=== PATIENT | male | born 1945 | race Caucasian/White ===

== ENCOUNTER 2016-09-26 09:35 | Emergency (ER) | payer OTHER, MEDICARE ==
[~2016-09-26 09:35] MED LIST: ALBUTEROL; ANAPROX DS550 MG PO; AUGMENTIN 875 M1 TAB PO; CLEOCIN HCL150 MG PO; ENALAPRIL20 MG PO; GLUCOPHAGE1000 MG PO; HYDROCODONE BIT1 T11 PO; INDOMETHACIN25 M1 PO; INDOMETHACIN50 MG PO; INVEGA3 MG PO; LIPITOR; LIPITOR20 MG PO; METFORMIN PO; MIRTAZAPINE15 M2 PO; MULTIVITAMIN PO; Mysoline50 MG PO; NATURE'S BLEND F1 MG PO; PREDNISONE10 MG PO; TRAMADOL HCL50 MG PO; VICODIN 5/500 505 MG PO; VITAMIN D50000 I3 PO; ZYRTEC
[2016-09-26] MEDS ORDERED: Peridex 473 ML473 ML PO (09:53)
[2016-09-26] MEDS ORDERED: LIDOCAINE HCL100 M1 MM (09:53)
[2016-09-26] MEDS ORDERED: CLINDAMYCIN150 MG PO (09:53)
== END 2016-09-26 10:17 | disposition home or self-care (01) ==
LOC: ED 09:35
DX: K04.7 Periapical abscess without sinus (principal); E11.9 Type 2 diabetes mellitus without complications; M10.9 Gout, unspecified; E78.5 Hyperlipidemia, unspecified; I10 Essential (primary) hypertension; G20 Parkinson's disease; Z90.89 Acquired absence of other organs; Z79.899 Other long term (current) drug therapy

== ENCOUNTER 2020-06-03 21:37 | Inpatient (IN) | payer MEDICARE ==
[~2020-06-03] VITALS: Ht 172.7 cm; Wt 79.5 kg
[~2020-06-03 21:37] MED LIST changes: +CLINDAMYCIN150 MG PO; +LIDOCAINE HCL100 M1 MM; +Peridex 473 ML473 ML PO
[2020-06-03 23:07] VITALS: BP 146/81
[2020-06-03 23:41] LABS: BASO % 0.2 % (0.0-1.0); EOS % 0.2 % (1.0-4.0); HEMATOCRIT 43.9 % (42.0-52.0); LYMPH # 1.2 10*3/uL (1.3-4.4); LYMPH % 8.4 % (27.0-41.0); MEAN CELL VOLUME 97.3 fl (80.0-94.0); MEAN CORPUSCULAR HGB 31.3 pg (27.0-31.0); MEAN CORPUSCULAR HGB CONC 32.1 g/dl (33.0-37.0); MEAN PLATELET VOLUME 10.2 fl (9.6-12.3); MONO # 0.6 10*3/uL (0.1-1.0); MONO % 4.1 % (3.0-9.0); NEUT # 12.8 10*3/uL (2.3-7.9); NEUT % 86.6 % (47.0-73.0); PLATELET COUNT AUTOMATED 304 10*3/uL (130-400); RED BLOOD COUNT 4.51 10*6/uL (4.50-5.90); RED CELL DISTRI WIDTH 11.9 % (0-14.5); WHITE BLOOD COUNT 14.8 10*3/uL (4.8-10.8)
[2020-06-03 23:56] LABS: ALBUMIN 3.9 gm/dl (3.1-4.5); CREATININE 2.77 mg/dL (0.70-1.30); POTASSIUM 5.7 mmol/L (3.5-5.1)
[2020-06-04 02:11] LABS: ACT PARTIAL THROMBO TIME 23.1 SECONDS (20.0-32.1); INTERNATIONAL NORM RATIO 1.1 (2.0-3.5)
[2020-06-04 02:15] LABS: CREATININE 2.62 mg/dL (0.70-1.30)
[2020-06-04 02:27] LABS: BASO % 0.2 % (0.0-1.0); EOS % 0.1 % (1.0-4.0); HEMATOCRIT 41.7 % (42.0-52.0); LYMPH # 0.9 10*3/uL (1.3-4.4); LYMPH % 6.1 % (27.0-41.0); MEAN CELL VOLUME 97.2 fl (80.0-94.0); MEAN CORPUSCULAR HGB 31.7 pg (27.0-31.0); MEAN CORPUSCULAR HGB CONC 32.6 g/dl (33.0-37.0); MEAN PLATELET VOLUME 10.3 fl (9.6-12.3); MONO # 0.5 10*3/uL (0.1-1.0); MONO % 3.3 % (3.0-9.0); NEUT # 12.6 10*3/uL (2.3-7.9); NEUT % 89.7 % (47.0-73.0); PLATELET COUNT AUTOMATED 261 10*3/uL (130-400); RED BLOOD COUNT 4.29 10*6/uL (4.50-5.90)
[2020-06-04 02:41] LABS: POTASSIUM 6.6 mmol/L (3.5-5.1)
[2020-06-04 03:26] LABS: ABG BASE EXCESS -14.6 mmol/L (-2.0-2.0); ARTERIAL BLOOD GAS PH 7.281 (7.35-7.45)
[2020-06-04 03:29] LABS: BILIRUBIN Negative (Negative); CLARITY Clear (Clear); COLOR Yellow (Yellow); GLUCOSE 3+ (Negative); KETONE 4+ (Negative); SPECIFIC GRAVITY 1.015 (1.001-1.030)
[2020-06-04 03:30] LABS: BLOOD Negative (Negative); LEUKO ESTERASE Negative (Negative); NITRITE Negative (Negative); UROBILINOGEN 0.2 E.U./dl (0.0-1.0)
[2020-06-04 04:28] VITALS: BP 142/78
[2020-06-04 07:03] LABS: CREATININE 2.27 mg/dL (0.70-1.30)
[2020-06-04 07:04] LABS: POTASSIUM 4.6 mmol/L (3.5-5.1)
[2020-06-04 08:34] LABS: VITAMIN D, 25-HYDROXY 32.6 ng/mL (30-100)
[2020-06-04 11:03] LABS: CREATININE 2.05 mg/dL (0.70-1.30); POTASSIUM 4.6 mmol/L (3.5-5.1)
[2020-06-04 12:00] VITALS: BP 94/43
[2020-06-04 12:00] LABS: CREATININE 2.27 mg/dL (0.70-1.30); POTASSIUM 4.6 mmol/L (3.5-5.1)
[2020-06-04 12:11] LABS: ALBUMIN 3.2 gm/dl (3.1-4.5); TOTAL PROTEIN 6.5 gm/dL (6.4-8.2)
[2020-06-04 12:13] LABS: FREE T4 1.18 ng/dl (0.76-1.46)
[2020-06-04 12:19] LABS: THYROID STIM HORMONE (HS) 0.288 uIU/ml (0.358-4.75)
[2020-06-04 12:22] VITALS: BP 92/44
[2020-06-04] MEDS ORDERED: TAMSULOSIN HCL0.4 MG PO (12:46)
[2020-06-04 17:07] LABS: CREATININE 1.87 mg/dL (0.70-1.30); POTASSIUM 4.7 mmol/L (3.5-5.1)
[2020-06-05 02:59] VITALS: BP 147/66
[2020-06-05 06:59] LABS: BASO % 0.3 % (0.0-1.0); EOS # 0.1 10*3/uL (0.0-0.4); HEMATOCRIT 32.4 % (42.0-52.0); LYMPH # 2.2 10*3/uL (1.3-4.4); MEAN CELL VOLUME 94.5 fl (80.0-94.0); MEAN CORPUSCULAR HGB 31.8 pg (27.0-31.0); MEAN CORPUSCULAR HGB CONC 33.6 g/dl (33.0-37.0); MEAN PLATELET VOLUME 11.3 fl (9.6-12.3); MONO # 0.4 10*3/uL (0.1-1.0); MONO % 5.7 % (3.0-9.0); NEUT # 3.7 10*3/uL (2.3-7.9); NEUT % 57.4 % (47.0-73.0); RED BLOOD COUNT 3.43 10*6/uL (4.50-5.90); RED CELL DISTRI WIDTH 12.1 % (0-14.5); WHITE BLOOD COUNT 6.5 10*3/uL (4.8-10.8)
[2020-06-05 07:12] LABS: PLATELET COUNT AUTOMATED 148 10*3/uL (130-400)
[2020-06-05 07:47] LABS: ALBUMIN 2.8 gm/dl (3.1-4.5); CREATININE 1.46 mg/dL (0.70-1.30); POTASSIUM 4.3 mmol/L (3.5-5.1); TOTAL PROTEIN 5.8 gm/dL (6.4-8.2)
[2020-06-05 08:00] VITALS: BP 171/80
[2020-06-05] MEDS ORDERED: Lantus SC (11:52)
[2020-06-05 12:00] VITALS: BP 140/79
[2020-06-05 16:15] VITALS: BP 106/60
== END 2020-06-05 17:30 | disposition home or self-care (01) | DRG 637 ==
LOC: ED 21:37 → 5E 06-04 01:11 → EDHOLD 06-04 01:11 → 5E 06-05 02:16
PROVIDERS: Internal Medicine; Nurse Practitioner Family; Student in an Organized Health Care Education/Training Program; ADMIT Internal Medicine; ATTEND Internal Medicine
DX: E11.10 Type 2 diabetes mellitus with ketoacidosis without coma (principal); N17.0 Acute kidney failure with tubular necrosis; R65.11 Systemic inflammatory response syndrome (SIRS) of non-infectious origin with acute organ dysfunction; E87.1 Hypo-osmolality and hyponatremia; G20 Parkinson's disease; F32.9 Major depressive disorder, single episode, unspecified; Z20.828 Contact with and (suspected) exposure to other viral communicable diseases; E87.5 Hyperkalemia; I10 Essential (primary) hypertension; E78.5 Hyperlipidemia, unspecified; Z79.4 Long term (current) use of insulin; E87.8 Other disorders of electrolyte and fluid balance, not elsewhere classified; Z79.899 Other long term (current) drug therapy

== ENCOUNTER 2020-06-06 13:24 | Inpatient (IN) | payer MEDICARE ==
[~2020-06-06] VITALS: Ht 172.7 cm; Wt 76.3 kg
[~2020-06-06 13:24] MED LIST changes: +Lantus SC; +TAMSULOSIN HCL0.4 MG PO
[2020-06-06 13:35] VITALS: BP 133/64
[2020-06-06 14:00] LABS: BASO % 0.5 % (0.0-1.0); EOS # 0.1 10*3/uL (0.0-0.4); EOS % 1.6 % (1.0-4.0); HEMATOCRIT 37.1 % (42.0-52.0); LYMPH # 1.5 10*3/uL (1.3-4.4); LYMPH % 23.6 % (27.0-41.0); MEAN CELL VOLUME 95.1 fl (80.0-94.0); MEAN CORPUSCULAR HGB 31.3 pg (27.0-31.0); MEAN CORPUSCULAR HGB CONC 32.9 g/dl (33.0-37.0); MONO # 0.4 10*3/uL (0.1-1.0); MONO % 6.2 % (3.0-9.0); NEUT # 4.1 10*3/uL (2.3-7.9); NEUT % 67.4 % (47.0-73.0); RED CELL DISTRI WIDTH 12.2 % (0-14.5); WHITE BLOOD COUNT 6.1 10*3/uL (4.8-10.8)
[2020-06-06 14:01] LABS: PLATELET COUNT AUTOMATED 193 10*3/uL (130-400)
[2020-06-06 14:11] LABS: ALBUMIN 3.4 gm/dl (3.1-4.5); CREATININE 1.42 mg/dL (0.70-1.30); POTASSIUM 4.6 mmol/L (3.5-5.1); TOTAL PROTEIN 6.9 gm/dL (6.4-8.2)
[2020-06-06 14:45] LABS: BILIRUBIN Negative (Negative); BLOOD Negative (Negative); CLARITY Clear (Clear); COLOR Yellow (Yellow); GLUCOSE 3+ (Negative); KETONE 4+ (Negative); LEUKO ESTERASE Negative (Negative); NITRITE Negative (Negative); SPECIFIC GRAVITY 1.025 (1.001-1.030); UROBILINOGEN 0.2 E.U./dl (0.0-1.0)
[2020-06-06 14:55] LABS: BACTERIA TRACE; WBC 31-40 wbc/hpf (0-5)
[2020-06-06 17:00] VITALS: BP 128/76
[2020-06-06 18:06] LABS: BUN 14 mg/dl (7-24); CHLORIDE 107 mmol/L (98-107); CREATININE 1.39 mg/dL (0.70-1.30); POTASSIUM 4.4 mmol/L (3.5-5.1); SODIUM 141 mmol/L (136-145)
[2020-06-06 21:05] VITALS: BP 136/76
[2020-06-06 22:14] LABS: BUN 14 mg/dl (7-24); CHLORIDE 108 mmol/L (98-107); CREATININE 1.38 mg/dL (0.70-1.30); POTASSIUM 4.8 mmol/L (3.5-5.1); SODIUM 140 mmol/L (136-145)
[2020-06-07] VITALS: BP 128/70
[2020-06-07 02:04] LABS: CREATININE 1.41 mg/dL (0.70-1.30); POTASSIUM 4.3 mmol/L (3.5-5.1)
[2020-06-07 04:00] VITALS: BP 130/72
[2020-06-07 05:44] LABS: ALKALINE PHOSPHATASE 80 U/L (45-117); BUN 13 mg/dl (7-24); CHLORIDE 110 mmol/L (98-107); CREATININE 1.25 mg/dL (0.70-1.30); POTASSIUM 4.7 mmol/L (3.5-5.1); SGOT/AST 26 IU/L (3-35); SGPT/ALT 20 U/L (12-78); SODIUM 142 mmol/L (136-145)
[2020-06-07 06:14] LABS: BASO % 0.6 % (0.0-1.0); EOS # 0.2 10*3/uL (0.0-0.4); EOS % 3.6 % (1.0-4.0); HEMATOCRIT 33.3 % (42.0-52.0); LYMPH # 1.9 10*3/uL (1.3-4.4); LYMPH % 38.2 % (27.0-41.0); MEAN CELL VOLUME 94.6 fl (80.0-94.0); MEAN CORPUSCULAR HGB 32.1 pg (27.0-31.0); MEAN CORPUSCULAR HGB CONC 33.9 g/dl (33.0-37.0); MEAN PLATELET VOLUME 10.4 fl (9.6-12.3); MONO # 0.4 10*3/uL (0.1-1.0); MONO % 7.5 % (3.0-9.0); NEUT # 2.5 10*3/uL (2.3-7.9); NEUT % 49.1 % (47.0-73.0); PLATELET COUNT AUTOMATED 185 10*3/uL (130-400); RED BLOOD COUNT 3.52 10*6/uL (4.50-5.90); RED CELL DISTRI WIDTH 12.2 % (0-14.5); WHITE BLOOD COUNT 5.1 10*3/uL (4.8-10.8)
[2020-06-07 08:05] VITALS: BP 141/72
[2020-06-07 12:05] VITALS: BP 132/74
[2020-06-07 14:42] LABS: BUN 13 mg/dl (7-24); CHLORIDE 108 mmol/L (98-107); CREATININE 1.37 mg/dL (0.70-1.30); POTASSIUM 4.1 mmol/L (3.5-5.1); SODIUM 140 mmol/L (136-145)
[2020-06-07 18:20] VITALS: BP 130/80
[2020-06-07] MEDS ORDERED: METFORMIN HYD1000 MG PO (18:40)
[2020-06-07] MEDS ORDERED: VITAMIN C500 M4 PO (18:41)
[2020-06-07] MEDS ORDERED: LIPITOR40 MG PO (18:41)
[2020-06-07] MEDS ORDERED: VITAMIN D PO (18:42)
[2020-06-07] MEDS ORDERED: VITAMIN B12 PO (18:42)
[2020-06-07] MEDS ORDERED: CO Q-10200 MG PO (18:43)
[2020-06-07] MEDS ORDERED: NATURAL LUTEIN20 MG PO (18:43)
[2020-06-07] MEDS ORDERED: BILBERRY EXTRAC30 MG PO (18:44)
[2020-06-07] MEDS ORDERED: BETA CAROT10000 UNIT PO (18:44)
[2020-06-07] MEDS ORDERED: SAW PALMETTO500 MG PO (18:45)
[2020-06-07] MEDS ORDERED: ARGININE PO (18:45)
[2020-06-07 20:00] VITALS: BP 114/58
[2020-06-08] VITALS: BP 108/85
[2020-06-08 06:58] LABS: BUN 11 mg/dl (7-24); CHLORIDE 110 mmol/L (98-107); CREATININE 1.08 mg/dL (0.70-1.30); POTASSIUM 3.9 mmol/L (3.5-5.1); SODIUM 143 mmol/L (136-145)
[2020-06-08 08:00] VITALS: BP 134/78
[2020-06-08] MEDS ORDERED: BASAG SOL SC (10:48)
[2020-06-08] MEDS ORDERED: HUMALOG100 UNIT/1 SC (10:50)
== END 2020-06-08 12:47 | disposition home or self-care (01) | DRG 637 ==
LOC: ED 13:24 → EDHOLD 14:44 → 5E 06-07 17:28
PROVIDERS: Emergency Medicine; Registered Nurse; ADMIT Internal Medicine; ATTEND Internal Medicine
DX: E11.10 Type 2 diabetes mellitus with ketoacidosis without coma (principal); N17.0 Acute kidney failure with tubular necrosis; E44.0 Moderate protein-calorie malnutrition; G20 Parkinson's disease; I10 Essential (primary) hypertension; E78.5 Hyperlipidemia, unspecified; Z79.899 Other long term (current) drug therapy; Z68.25 Body mass index [BMI] 25.0-25.9, adult

== ENCOUNTER → 2020-07-08 | Outpatient (CLI) | payer MEDICARE ==
[~2020-07-08] MED LIST changes: +ARGININE PO; +BASAG SOL SC; +BETA CAROT10000 UNIT PO; +BILBERRY EXTRAC30 MG PO; +CO Q-10200 MG PO; +HUMALOG100 UNIT/1 SC; +LIPITOR40 MG PO; +METFORMIN HYD1000 MG PO; +NATURAL LUTEIN20 MG PO; +SAW PALMETTO500 MG PO; +VITAMIN B12 PO; +VITAMIN C500 M4 PO; +VITAMIN D PO
== END | disposition home or self-care (01) ==
LOC: RESCLI 12:00
PROVIDERS: ATTEND Internal Medicine Nephrology
DX: E11.9 Type 2 diabetes mellitus without complications (principal); I10 Essential (primary) hypertension; E78.5 Hyperlipidemia, unspecified; N40.0 Benign prostatic hyperplasia without lower urinary tract symptoms; G20 Parkinson's disease; F32.5 Major depressive disorder, single episode, in full remission; Z79.4 Long term (current) use of insulin

== ENCOUNTER 2020-08-24 17:17 | Emergency (ER) | payer MEDICARE ==
[~2020-08-24] VITALS: Ht 172.7 cm; Wt 68.0 kg
[2020-08-24 17:30] VITALS: BP 142/78
[2020-08-24 18:17] LABS: BASO % 0.6 % (0.0-1.0); EOS # 0.2 10*3/uL (0.0-0.4); EOS % 4.4 % (1.0-4.0); HEMATOCRIT 45.1 % (42.0-52.0); LYMPH # 1.1 10*3/uL (1.3-4.4); LYMPH % 23.7 % (27.0-41.0); MEAN CELL VOLUME 96.4 fl (80.0-94.0); MEAN CORPUSCULAR HGB 32.3 pg (27.0-31.0); MEAN CORPUSCULAR HGB CONC 33.5 g/dl (33.0-37.0); MEAN PLATELET VOLUME 9.4 fl (9.6-12.3); MONO # 0.3 10*3/uL (0.1-1.0); NEUT % 64.1 % (47.0-73.0); PLATELET COUNT AUTOMATED 213 10*3/uL (130-400); RED BLOOD COUNT 4.68 10*6/uL (4.50-5.90); WHITE BLOOD COUNT 4.7 10*3/uL (4.8-10.8)
[2020-08-24 18:33] LABS: ALBUMIN 4.1 gm/dl (3.1-4.5); ALKALINE PHOSPHATASE 72 U/L (45-117); BUN 18 mg/dl (7-24); CHLORIDE 104 mmol/L (98-107); CREATININE 1.24 mg/dL (0.70-1.30); POTASSIUM 4.5 mmol/L (3.5-5.1); SGOT/AST 26 IU/L (3-35); SGPT/ALT 46 U/L (12-78); SODIUM 139 mmol/L (136-145)
[2020-08-24 18:34] LABS: TROPONIN I 0.016 ng/ml (<0.045)
[2020-08-24 19:07] VITALS: BP 145/80
== END 2020-08-24 19:17 | disposition left against medical advice (07) ==
LOC: ED 17:17 → EDHOLD 18:50 → ED 19:17
PROVIDERS: Nurse Practitioner Family
DX: R07.9 Chest pain, unspecified (principal); R06.00 Dyspnea, unspecified; E11.9 Type 2 diabetes mellitus without complications; I10 Essential (primary) hypertension; Z79.4 Long term (current) use of insulin; Z79.899 Other long term (current) drug therapy; Z98.890 Other specified postprocedural states

== ENCOUNTER → 2024-03-16 | Outpatient (CLI) | payer OTHER | END | disposition home or self-care (01) | LOC: RAD 11:34 | PROVIDERS: ATTEND Internal Medicine | DX: M19.012 Primary osteoarthritis, left shoulder (principal); M25.512 Pain in left shoulder ==